=== PATIENT | female | born 1965 | race Caucasian/White ===

== ENCOUNTER 2017-08-12 22:19 | Emergency (ER) | payer OTHER ==
[~2017-08-12] VITALS: Ht 160 cm; Wt 99.8 kg
[~2017-08-12 22:19] MED LIST: ACET500 PO; ALBU90OI INH; ALBU90OI6 INH; ALBU90OI61 INH; ASCO500 PO; ATOR10; AZIT250 PO; AZIT500 PO; BYDUREON P2 MG/0.65 SC; BYETTA; CALCA500CH PO; CEFD300 PO; CEFP200 PO; CEPH500 PO; CIPR500 PO; CLON.1 PO; CONEST.625 PO; CONEST.9; CRUTCH4 USE; CYCL10 PO; Crutch1 EACH MISC; DIPATR PO; DOXY100 PO; DULERA 100 MCG/13 GM INH; DULO30; DULO30 PO; DULO60 PO; Diflucan100 MG PO; ENOX40I SC; ERYT500 PO; ESCI20; ESCI20 PO; ESOM20; ESOM20 PO; ESTR1 PO; ESTR2 PO; Estradiol0.5 MG; FENO145 PO; FERR325 PO; FLUC150A PO; FLUO20 PO; FOLTANX RF CAP1 EACH PO; FURO40 PO; Flonase 0.05% N16 GM; GABA300 PO; GABA800 PO; GLIM4 MT; GLIM4 PO; GUAI120S1 PO; HORMONE PATCH TOP; HYDACE5 PO; HYDMOR2 PO; HYDROCODONE-HOMA5 ML PO; HYDSUL200 PO; Humalog100 UNIT/1 SC; Humulin 70-30 V10 ML SC; IBUP800 PO; INS70/30I; INS70/30PN; INSDET100; INSLI100I SUBQ; INSU7030P SUBQ; INSUASPI SC; INSUASPI SUBQ; INSUL100I SC; INSULANI SUBQ; INSULANPEN SC; INVOKANA100 MG PO; K-Dur10 MEQ PO; LATUDA40 MG PO; LEVFLO500 PO; LEVO750 PO; LEVSOD100; LEVSOD100 PO; LEVSOD175; LEVSOD175 PO; LEVSOD200; LEVSOD200 PO; LIRA0.6P SC; LISHYD1012 PO; LORA1; LORA1 PO; LORA2 PO; LOSA25 PO; Lasix20 MG PO; Levaquin750 MG PO; Levothyroxine200 MCG PO; MAGNESIUM; MAGNESIUM PO; MAGOXI400 PO; MECL25 PO; METANX CAPSULE1 EACH PO; METF500 PO; METF500C; METF850; METF850 PO; METO10 PO; MILN100T PO; MORP15ER PO; MORP30ER PO; NEBI5 PO; NEOPOLHCSU RIGHTEAR; NITR100 PO; NORT25 PO; NORT75 PO; NYST100000 PO; Norco 10-325 T1 EACH PO; Norco 5-325 Ta1 EACH PO; OLME20; OMEP20ER PO; OXYACE5T; OXYACE5T PO; OXYC10TA19 PO; Omeprazole20 M1 PO; PHENA200 PO; POTCHL20ER PO; PRAV20 PO; PRED20 PO; PROC10 PO; PROG100 MT; PROG100 PO; PROM25 PO; Percocet 5-3251 EACH PO; Prednisone20 MG PO; RXHYD5325 PO; RXOXYACE PO; SITA100T2 PO; SULTRIDS PO; TRAM50 PO; TYLENOL PRN; VARE1 PO; VENL75ER; Valium5 MG PO; Ventolin Soln3 ML INH; [UNRECOGNIZED DRUG - CODE]; [UNRECOGNIZED DRUG - OTHER] PO; [UNRECOGNIZED DRUG - OTHER] TOP
[2017-08-13 01:21] LABS: BASOPHILS ABSOLUTE AUTO 0.07 K/mm3 (0.00-0.23); BASOPHILS PERCENT AUTO 1 % (0-2); EOSINOPHILS PERCENT AUTO 2 % (0-6); Hematocrit 41.5 % (33.0-51.0); Hemoglobin 13.3 g/dL (11.5-16.0); Mean Corpuscular HGB 27.1 pg (26.0-34.0); Mean Corpuscular Volume 85 fL (80-100); Mean Platelet Volume 10.1 fL (9.1-12.4); Platelet Count 233 K/mm3 (150-400); RDW Coefficient Variation 15.3 % (11.7-14.2); RDW Standard Deviation 46.8 fL (35.1-46.3); White Blood Cell Count 13.55 K/mm3 (4.00-11.30)
[2017-08-13 01:23] LABS: IMMATURE GRAN ABSOLUTE AUTO 0.08 K/mm3 (0.00-0.10); IMMATURE GRAN PERCENT AUTO 1 % (0-1); LYMPHOCYTES ABSOLUTE AUTO 4.81 K/mm3 (0.84-5.20); LYMPHOCYTES PERCENT AUTO 36 % (21-46); MONOCYTES ABSOLUTE AUTO 0.68 K/mm3 (0.16-1.47); MONOCYTES PERCENT AUTO 5 % (4-13); NEUTROPHILS ABSOLUTE AUTO 7.71 K/mm3 (1.96-9.15); NEUTROPHILS PERCENT AUTO 57 % (41-73)
[2017-08-13 01:37] LABS: Alanine Aminotransfer (ALT/SGP 24 U/L (12-78); Albumin, Blood 3.7 g/dL (3.4-5.0); Albumin/Globulin Ratio 0.9 (0.8-1.8); Alk Phos 155 U/L (50-136); Anion Gap 11 mmol/L (6-16); Aspartate Aminotrans (AST/SGOT 14 U/L (12-37); Bilirubin, Total 0.3 mg/dL (0.1-1.0); Blood Urea Nitrogen 10 mg/dL (8-24); Bun/Creatinine Ratio 17.7 (12.0-20.0); CO2, Blood 22 mmol/L (21-32); Calcium, Blood 8.7 mg/dL (8.5-10.1); Chloride, Blood 101 mmol/L (98-108); Creatinine, Blood 0.57 mg/dL (0.40-1.00); Globulin, Blood 3.9 g/dL (2.2-4.0); Glomerular Filtration Rate >60 (60-); Glucose, Blood 338 mg/dL (70-99); Potassium, Blood 3.7 mmol/L (3.5-5.5); Sodium, Blood 134 mmol/L (136-145); Total Protein, Blood 7.6 g/dL (6.4-8.2); Troponin I <0.015 ng/mL (0.000-0.040)
[2017-08-13] MEDS ORDERED: Prednisone20 MG PO (02:15)
[2018-06-27] MEDS ORDERED: Augmentin 875-1 EACH PO ×2 (05:24→05:36)
== END 2017-08-13 02:43 | disposition home or self-care (01) ==
LOC: ER 22:19
PROVIDERS: Emergency Medicine
DX: J44.1 Chronic obstructive pulmonary disease with (acute) exacerbation (principal); E11.9 Type 2 diabetes mellitus without complications; E03.9 Hypothyroidism, unspecified; F32.9 Major depressive disorder, single episode, unspecified; F41.9 Anxiety disorder, unspecified; F17.200 Nicotine dependence, unspecified, uncomplicated; Z88.0 Allergy status to penicillin; Z88.6 Allergy status to analgesic agent; Z88.8 Allergy status to other drugs, medicaments and biological substances; Z88.5 Allergy status to narcotic agent; Z79.4 Long term (current) use of insulin; Z79.899 Other long term (current) drug therapy; Z79.52 Long term (current) use of systemic steroids; Z90.710 Acquired absence of both cervix and uterus
CPT/HCPCS: 36415; 71046; 80053; 84484; 85025; 93005; 93010; 94640; 96374; 96375; 99284; J2405; J2930; J3010

== ENCOUNTER 2017-08-18 13:49 | Emergency (ER) | payer OTHER ==
[~2017-08-18] VITALS: Ht 160 cm; Wt 99.8 kg
[2018-06-27] MEDS ORDERED: Augmentin 875-1 EACH PO ×2 (05:24→05:36)
== END 2017-08-18 17:00 | disposition left against medical advice (07) ==
LOC: ER 13:49
DX: Z53.21 Procedure and treatment not carried out due to patient leaving prior to being seen by health care provider (principal)
CPT/HCPCS: 99281

== ENCOUNTER 2018-01-10 05:20 | Emergency (ER) | payer OTHER ==
[~2018-01-10] VITALS: Ht 160 cm; Wt 97.5 kg
[~2018-01-10 05:20] MED LIST changes: +SYNTHROID0.2 MG PO
[2018-01-10] MEDS ORDERED: METPRE4DP PO (07:39)
== END 2018-01-10 08:13 | disposition home or self-care (01) ==
LOC: ER 05:20
DX: J02.9 Acute pharyngitis, unspecified (principal); E11.9 Type 2 diabetes mellitus without complications; E03.9 Hypothyroidism, unspecified; F32.9 Major depressive disorder, single episode, unspecified; F41.9 Anxiety disorder, unspecified; Z88.8 Allergy status to other drugs, medicaments and biological substances; Z88.6 Allergy status to analgesic agent; Z88.0 Allergy status to penicillin; Z79.899 Other long term (current) drug therapy; Z79.4 Long term (current) use of insulin
CPT/HCPCS: 81000; 87081; 87430; 96372; 99283; J1100

== ENCOUNTER 2018-03-06 15:26 | Observation (INO) | payer OTHER ==
[~2018-03-06] VITALS: Ht 157.5 cm; Wt 100.7 kg
[~2018-03-06 15:26] MED LIST changes: +METPRE4DP PO; -SYNTHROID0.2 MG PO
[2018-03-06 16:06] LABS: BASOPHILS ABSOLUTE AUTO 0.03 K/mm3 (0.00-0.23); BASOPHILS PERCENT AUTO 0 % (0-2); EOSINOPHILS ABSOLUTE AUTO 0.22 K/mm3 (0.00-0.68); EOSINOPHILS PERCENT AUTO 2 % (0-6); Hematocrit 39.7 % (33.0-51.0); Hemoglobin 12.7 g/dL (11.5-16.0); IMMATURE GRAN ABSOLUTE AUTO 0.07 K/mm3 (0.00-0.10); IMMATURE GRAN PERCENT AUTO 1 % (0-1); LYMPHOCYTES ABSOLUTE AUTO 3.38 K/mm3 (0.84-5.20); LYMPHOCYTES PERCENT AUTO 27 % (21-46); MONOCYTES ABSOLUTE AUTO 0.51 K/mm3 (0.16-1.47); MONOCYTES PERCENT AUTO 4 % (4-13); Mean Corpuscular HGB 26.1 pg (26.0-34.0); Mean Corpuscular Volume 82 fL (80-100); Mean Platelet Volume 11.1 fL (9.1-12.4); NEUTROPHILS PERCENT AUTO 67 % (41-73); Platelet Count 237 K/mm3 (150-400); RDW Coefficient Variation 14.5 % (11.7-14.2); RDW Standard Deviation 42.3 fL (35.1-46.3); Red Blood Cell Count 4.87 M/mm3 (3.80-5.20); White Blood Cell Count 12.61 K/mm3 (4.00-11.30)
[2018-03-06 16:24] LABS: Alanine Aminotransfer (ALT/SGP 30 U/L (12-78); Albumin, Blood 3.6 g/dL (3.4-5.0); Albumin/Globulin Ratio 0.9 (0.8-1.8); Alk Phos 168 U/L (50-136); Anion Gap 11 mmol/L (6-16); Aspartate Aminotrans (AST/SGOT 15 U/L (12-37); Bilirubin, Total 0.6 mg/dL (0.1-1.0); Blood Urea Nitrogen 7 mg/dL (8-24); Bun/Creatinine Ratio 11.6 (12.0-20.0); CO2, Blood 28 mmol/L (21-32); Calcium, Blood 9.2 mg/dL (8.5-10.1); Chloride, Blood 91 mmol/L (98-108); Creatinine, Blood 0.61 mg/dL (0.40-1.00); Globulin, Blood 3.9 g/dL (2.2-4.0); Glomerular Filtration Rate >60 (60-); Glucose, Blood 354 mg/dL (70-99); Potassium, Blood 3.4 mmol/L (3.5-5.5); Sodium, Blood 130 mmol/L (136-145); Total Protein, Blood 7.5 g/dL (6.4-8.2); Troponin I <0.015 ng/mL (0.000-0.040)
[2018-03-06 16:29] LABS: Thyroid Stimulating Hormone <0.005 uIU/mL (0.360-4.800)
[2018-03-06] MEDS ORDERED: Humulin N100 UNIT/1 SC (16:33)
[2018-03-06] MEDS ORDERED: BASAGLAR K100 UNIT/1 SC (16:35)
[2018-03-06 17:02] LABS: Free Thyroxine 3.2 ng/dL (0.70-1.60)
[2018-03-06 17:06] LABS: Triiodothyronine, Free 5.69 pg/mL (2.18-3.98)
[2018-03-07 06:16] LABS: Hematocrit 33.4 % (33.0-51.0); Hemoglobin 10.9 g/dL (11.5-16.0); Mean Corpuscular HGB 26.8 pg (26.0-34.0); Mean Corpuscular HGB Conc 32.6 g/dL (31.5-36.5); Mean Corpuscular Volume 82 fL (80-100); Mean Platelet Volume 10.3 fL (9.1-12.4); Platelet Count 182 K/mm3 (150-400); RDW Coefficient Variation 14.6 % (11.7-14.2); RDW Standard Deviation 43.4 fL (35.1-46.3); Red Blood Cell Count 4.06 M/mm3 (3.80-5.20); White Blood Cell Count 9.13 K/mm3 (4.00-11.30)
[2018-03-07 06:31] LABS: LDL/HDL RATIO 0.8; Troponin I <0.015 ng/mL (0.000-0.040); Very Low Density Lipoprot Chol 45 mg/dL (6-32)
[2018-03-07 06:32] LABS: Anion Gap 7 mmol/L (6-16); Blood Urea Nitrogen 7 mg/dL (8-24); Bun/Creatinine Ratio 10.9 (12.0-20.0); CHOL/HDL RATIO 3.4; CO2, Blood 29 mmol/L (21-32); Calcium, Blood 8.1 mg/dL (8.5-10.1); Chloride, Blood 101 mmol/L (98-108); Cholesterol 96 mg/dL (50-200); Creatinine, Blood 0.65 mg/dL (0.40-1.00); Glomerular Filtration Rate >60 (60-); Glucose, Blood 250 mg/dL (70-99); HDL Cholesterol 28 mg/dL (>39); Low Density Lipoprotein Chol 23 mg/dL (0-110); Potassium, Blood 4.3 mmol/L (3.5-5.5); Sodium, Blood 137 mmol/L (136-145); Triglycerides 225 mg/dL (30-160)
[2018-03-07 09:10] LABS: Source, Urine Clean Catch
[2018-03-07 09:25] LABS: Bilirubin, Urine Neg (Neg); Blood, Urine Neg (Neg); Glucose Qualitative, Urine 3+ (Neg); Ketones, Urine Neg (Neg); Leukocyte Esterase, Urine Neg (Neg); Nitrite, Urine Neg (Neg); Protein, Urine Neg (Neg); Specific Gravity, Urine 1.015 (1.003-1.022); Urobilinogen, Urine NORM (Normal)
[2018-03-07 09:26] LABS: Appearance, Urine Clear (Clear); Color, Urine Yellow (P-Yellow)
[2018-03-08] MEDS ORDERED: METO25ER PO (19:32)
== END 2018-03-08 19:45 | disposition home or self-care (01) ==
LOC: ER 15:26 → PCU 15:27
PROVIDERS: Nurse Practitioner Acute Care; Physician Assistant
DX: R07.9 Chest pain, unspecified (principal); R07.89 Other chest pain; E03.2 Hypothyroidism due to medicaments and other exogenous substances; T38.1X5A Adverse effect of thyroid hormones and substitutes, initial encounter; J44.9 Chronic obstructive pulmonary disease, unspecified; E11.9 Type 2 diabetes mellitus without complications; G47.33 Obstructive sleep apnea (adult) (pediatric); Z99.89 Dependence on other enabling machines and devices; M79.7 Fibromyalgia; E66.01 Morbid (severe) obesity due to excess calories; F32.9 Major depressive disorder, single episode, unspecified; I10 Essential (primary) hypertension; E87.1 Hypo-osmolality and hyponatremia; E87.6 Hypokalemia; Z79.899 Other long term (current) drug therapy
CPT/HCPCS: 36415; 71046; 71260; 78452; 80048; 80053; 80061; 81003; 82947; 84439; 84443; 84481; 84484; 85025; 85027; 85379; 93005; 93010; 93017; 94640; 94760; 96361; 96374; 96375; 96376; 99285-25; A9500; G0378; J0706; J2785; J3010; J7030; Q9967

== ENCOUNTER → 2018-08-23 | Outpatient (CLI) | payer OTHER ==
[~2018-08-23] MED LIST changes: +Augmentin 875-1 EACH PO; +BASAGLAR K100 UNIT/1 SC; +Humulin N100 UNIT/1 SC; +METO25ER PO
[2018-08-23 17:07] LABS: BASOPHILS ABSOLUTE AUTO 0.07 K/mm3 (0.00-0.23); BASOPHILS PERCENT AUTO 1 % (0-2); EOSINOPHILS ABSOLUTE AUTO 0.76 K/mm3 (0.00-0.68); EOSINOPHILS PERCENT AUTO 6 % (0-6); Hematocrit 40.6 % (33.0-51.0); Hemoglobin 13.5 g/dL (11.5-16.0); IMMATURE GRAN ABSOLUTE AUTO 0.05 K/mm3 (0.00-0.10); IMMATURE GRAN PERCENT AUTO 0 % (0-1); LYMPHOCYTES ABSOLUTE AUTO 4.07 K/mm3 (0.84-5.20); LYMPHOCYTES PERCENT AUTO 31 % (21-46); MONOCYTES ABSOLUTE AUTO 0.62 K/mm3 (0.16-1.47); MONOCYTES PERCENT AUTO 5 % (4-13); Mean Corpuscular HGB 26.9 pg (26.0-34.0); Mean Corpuscular HGB Conc 33.3 g/dL (31.5-36.5); Mean Corpuscular Volume 81 fL (80-100); Mean Platelet Volume 10.5 fL (9.1-12.4); NEUTROPHILS ABSOLUTE AUTO 7.69 K/mm3 (1.96-9.15); NEUTROPHILS PERCENT AUTO 58 % (41-73); Platelet Count 250 K/mm3 (150-400); RDW Coefficient Variation 15.3 % (11.7-14.2); RDW Standard Deviation 44.7 fL (35.1-46.3); Red Blood Cell Count 5.02 M/mm3 (3.80-5.20); White Blood Cell Count 13.26 K/mm3 (4.00-11.30)
[2018-08-23 17:19] LABS: Alanine Aminotransfer (ALT/SGP 24 U/L (12-78); Albumin/Globulin Ratio 1.1 (0.8-1.8); Alk Phos 140 U/L (40-126); Anion Gap 9 mmol/L (6-16); Aspartate Aminotrans (AST/SGOT 14 U/L (12-37); Bilirubin, Total 0.3 mg/dL (0.1-1.0); Blood Urea Nitrogen 7 mg/dL (8-24); CO2, Blood 27 mmol/L (21-32); Chloride, Blood 96 mmol/L (98-108); Creatinine, Blood 0.78 mg/dL (0.40-1.00); Globulin, Blood 3.5 g/dL (2.2-4.0); Glomerular Filtration Rate >60 (60-); Glucose, Blood 286 mg/dL (70-99); Potassium, Blood 4.1 mmol/L (3.5-5.5); Sodium, Blood 132 mmol/L (136-145); Total Protein, Blood 7.5 g/dL (6.4-8.2)
== END | disposition home or self-care (01) ==
LOC: LAB EV 17:04 → LAB SHORT 17:04
PROVIDERS: Physician Assistant
DX: R10.9 Unspecified abdominal pain (principal)
CPT/HCPCS: 80053; 83690; 85025

== ENCOUNTER → 2018-08-24 | Outpatient (CLI) | payer OTHER ==
[2018-08-24 14:51] LABS: BASOPHILS ABSOLUTE AUTO 0.05 K/mm3 (0.00-0.23); BASOPHILS PERCENT AUTO 0 % (0-2); EOSINOPHILS ABSOLUTE AUTO 0.63 K/mm3 (0.00-0.68); EOSINOPHILS PERCENT AUTO 5 % (0-6); Hematocrit 40.1 % (33.0-51.0); Hemoglobin 13.5 g/dL (11.5-16.0); IMMATURE GRAN ABSOLUTE AUTO 0.04 K/mm3 (0.00-0.10); IMMATURE GRAN PERCENT AUTO 0 % (0-1); LYMPHOCYTES ABSOLUTE AUTO 3.67 K/mm3 (0.84-5.20); LYMPHOCYTES PERCENT AUTO 30 % (21-46); MONOCYTES ABSOLUTE AUTO 0.57 K/mm3 (0.16-1.47); MONOCYTES PERCENT AUTO 5 % (4-13); Mean Corpuscular HGB 27.2 pg (26.0-34.0); Mean Corpuscular HGB Conc 33.7 g/dL (31.5-36.5); Mean Corpuscular Volume 81 fL (80-100); Mean Platelet Volume 10.8 fL (9.1-12.4); NEUTROPHILS ABSOLUTE AUTO 7.35 K/mm3 (1.96-9.15); NEUTROPHILS PERCENT AUTO 60 % (41-73); Platelet Count 254 K/mm3 (150-400); RDW Coefficient Variation 15.4 % (11.7-14.2); RDW Standard Deviation 44.4 fL (35.1-46.3); Red Blood Cell Count 4.97 M/mm3 (3.80-5.20); White Blood Cell Count 12.31 K/mm3 (4.00-11.30)
== END | disposition home or self-care (01) ==
LOC: LAB EV 14:44 → LAB SHORT 14:44
PROVIDERS: Physician Assistant
DX: R10.9 Unspecified abdominal pain (principal)
CPT/HCPCS: 85025

== ENCOUNTER 2019-06-03 20:23 | Emergency (ER) | payer OTHER ==
[~2019-06-03] VITALS: Ht 162.6 cm; Wt 81.7 kg
[2019-06-03] MEDS ORDERED: BASAGLAR SC (21:08)
== END 2019-06-03 21:13 | disposition home or self-care (01) ==
LOC: ER 20:23
DX: S60.222A Contusion of left hand, initial encounter (principal); E03.9 Hypothyroidism, unspecified; E11.9 Type 2 diabetes mellitus without complications; F32.9 Major depressive disorder, single episode, unspecified; F41.9 Anxiety disorder, unspecified; F17.210 Nicotine dependence, cigarettes, uncomplicated; Z88.8 Allergy status to other drugs, medicaments and biological substances; Z88.6 Allergy status to analgesic agent; Z88.0 Allergy status to penicillin; Z88.5 Allergy status to narcotic agent; Z88.2 Allergy status to sulfonamides; Z88.1 Allergy status to other antibiotic agents; Z79.899 Other long term (current) drug therapy; Z79.84 Long term (current) use of oral hypoglycemic drugs; W01.10XA Fall on same level from slipping, tripping and stumbling with subsequent striking against unspecified object, initial encounter
CPT/HCPCS: 73130; 99283-25

== ENCOUNTER 2019-09-30 13:00 | Emergency (ER) | payer OTHER ==
[~2019-09-30] VITALS: Ht 162.6 cm; Wt 86.2 kg
[~2019-09-30 13:00] MED LIST changes: +BASAGLAR SC
[2019-09-30] MEDS ORDERED: METF500 PO (13:29)
[2019-09-30] MEDS ORDERED: Cymbalta20 MG (13:29)
[2019-09-30] MEDS ORDERED: TOPROL XL25 MG (13:29)
[2019-09-30] MEDS ORDERED: BASAGLAR K100 UNIT/2 (13:30)
[2019-09-30] MEDS ORDERED: GLIP2.5ER (13:30)
[2019-09-30] MEDS ORDERED: GABA800 PO (13:30)
[2019-09-30] MEDS ORDERED: OMEP20ER (13:30)
[2019-09-30] MEDS ORDERED: CYCL10 (13:30)
[2019-09-30] MEDS ORDERED: OXYC10TA19 (13:30)
== END 2019-09-30 15:09 | disposition home or self-care (01) ==
LOC: ER 13:00
DX: S93.402A Sprain of unspecified ligament of left ankle, initial encounter (principal); E11.9 Type 2 diabetes mellitus without complications; E03.9 Hypothyroidism, unspecified; F41.9 Anxiety disorder, unspecified; F32.9 Major depressive disorder, single episode, unspecified; G47.30 Sleep apnea, unspecified; M79.7 Fibromyalgia; M32.9 Systemic lupus erythematosus, unspecified; Z79.4 Long term (current) use of insulin; Z79.899 Other long term (current) drug therapy; F17.210 Nicotine dependence, cigarettes, uncomplicated; Z88.6 Allergy status to analgesic agent; Z88.8 Allergy status to other drugs, medicaments and biological substances; Z88.2 Allergy status to sulfonamides; W01.0XXA Fall on same level from slipping, tripping and stumbling without subsequent striking against object, initial encounter
CPT/HCPCS: 73030; 73080; 73610; 73630; 96372; 99283-25; A9270-GY; J1885

== ENCOUNTER 2019-11-19 17:11 | Emergency (ER) | payer OTHER ==
[~2019-11-19] VITALS: Ht 160 cm; Wt 86.2 kg
[~2019-11-19 17:11] MED LIST changes: +BASAGLAR K100 UNIT/2; +CYCL10; +Cymbalta20 MG; +GLIP2.5ER; +OMEP20ER; +OXYC10TA19; +TOPROL XL25 MG
[2019-11-19] MEDS ORDERED: ANTIDEPRESSANT (17:24)
[2019-11-20] MEDS ORDERED: Roxicodone5 MG PO (18:32)
== END 2019-11-19 18:07 | disposition home or self-care (01) ==
LOC: ER 17:11
DX: M79.672 Pain in left foot (principal); E11.9 Type 2 diabetes mellitus without complications; N19 Unspecified kidney failure; E03.9 Hypothyroidism, unspecified; F32.9 Major depressive disorder, single episode, unspecified; F41.9 Anxiety disorder, unspecified; G47.30 Sleep apnea, unspecified; F17.210 Nicotine dependence, cigarettes, uncomplicated
CPT/HCPCS: 73630; 96372; 99283-25; J1170

== ENCOUNTER 2019-11-20 17:46 | Emergency (ER) | payer OTHER ==
[~2019-11-20] VITALS: Ht 160 cm; Wt 86.2 kg
[~2019-11-20 17:46] MED LIST changes: +ANTIDEPRESSANT
[2019-11-20] MEDS ORDERED: Roxicodone5 MG PO (18:32)
== END 2019-11-20 18:45 | disposition home or self-care (01) ==
LOC: ER 17:46
DX: M87.9 Osteonecrosis, unspecified (principal); E11.9 Type 2 diabetes mellitus without complications; E03.9 Hypothyroidism, unspecified; F32.9 Major depressive disorder, single episode, unspecified; F41.9 Anxiety disorder, unspecified; G47.30 Sleep apnea, unspecified; F17.210 Nicotine dependence, cigarettes, uncomplicated; Z79.899 Other long term (current) drug therapy; Z79.4 Long term (current) use of insulin
CPT/HCPCS: 99283

== ENCOUNTER → 2020-03-14 | Outpatient (CLI) | payer OTHER ==
[~2020-03-14] MED LIST changes: +Roxicodone5 MG PO
== END | disposition home or self-care (01) ==
LOC: LAB SHORT 18:45 → LAB 18:45
DX: L02.91 Cutaneous abscess, unspecified (principal)
CPT/HCPCS: 87070; 87075; 87076; 87147; 87205

== ENCOUNTER 2020-08-11 17:44 | Emergency (ER) | payer MEDICARE, OTHER ==
[~2020-08-11] VITALS: Ht 162.6 cm; Wt 90.7 kg
== END 2020-08-11 19:00 | disposition home or self-care (01) ==
LOC: ER 17:44
DX: S93.401A Sprain of unspecified ligament of right ankle, initial encounter (principal); E11.9 Type 2 diabetes mellitus without complications; E03.9 Hypothyroidism, unspecified; F17.210 Nicotine dependence, cigarettes, uncomplicated; Z88.6 Allergy status to analgesic agent; Z88.0 Allergy status to penicillin; Z88.8 Allergy status to other drugs, medicaments and biological substances; Z88.2 Allergy status to sulfonamides; Z88.5 Allergy status to narcotic agent; Z88.1 Allergy status to other antibiotic agents; Z79.84 Long term (current) use of oral hypoglycemic drugs
CPT/HCPCS: 73610; 73630; 99283-25

== ENCOUNTER → 2020-10-01 | Outpatient (CLI) | payer MEDICARE, OTHER | END | disposition home or self-care (01) | LOC: LAB SHORT 07:29 → LAB 07:29 | DX: M87.076 Idiopathic aseptic necrosis of unspecified foot (principal); M77.8 Other enthesopathies, not elsewhere classified; M77.42 Metatarsalgia, left foot; M79.672 Pain in left foot; E11.42 Type 2 diabetes mellitus with diabetic polyneuropathy | CPT/HCPCS: 88305; 88311 ==

== ENCOUNTER → 2021-03-15 | Outpatient (CLI) | payer MEDICARE, OTHER | END | disposition home or self-care (01) | LOC: LAB 19:31 → LAB SHORT 19:31 | DX: Z20.822 Contact with and (suspected) exposure to COVID-19 (principal) | CPT/HCPCS: U0003 ==

== ENCOUNTER 2022-01-30 18:50 | Inpatient (IN) | payer MEDICARE, OTHER ==
[~2022-01-30] VITALS: Ht 162.6 cm; Wt 68.0 kg
[~2022-01-30 18:50] MED LIST changes: -Cymbalta20 MG; +METO50 PO; +Nexium40 MG PO; -OMEP20ER; -OXYC10TA19; -TOPROL XL25 MG
[2022-01-30 21:23] LABS: Source, Urine Voided
[2022-01-30 21:29] LABS: Bilirubin, Urine Neg (Neg); Blood, Urine Neg (Neg); Color, Urine Yellow (P-Yellow); Glucose Qualitative, Urine 4+ (Neg); Ketones, Urine 3+ (Neg); Leukocyte Esterase, Urine Neg (Neg); Nitrite, Urine Neg (Neg); Protein, Urine Neg (Neg); Specific Gravity, Urine 1.015 (1.003-1.022); Urobilinogen, Urine NORM (Normal)
[2022-01-30 21:40] LABS: Appearance, Urine Clear (Clear)
[2022-01-30 21:58] LABS: BASOPHILS ABSOLUTE AUTO 0.07 K/mm3 (0.00-0.23); BASOPHILS PERCENT AUTO 0 % (0-2); EOSINOPHILS ABSOLUTE AUTO 0.15 K/mm3 (0.00-0.68); EOSINOPHILS PERCENT AUTO 1 % (0-6); Hematocrit 49.7 % (33.0-51.0); Hemoglobin 17.2 g/dL (11.5-16.0); IMMATURE GRAN ABSOLUTE AUTO 0.11 K/mm3 (0.00-0.10); IMMATURE GRAN PERCENT AUTO 1 % (0-1); LYMPHOCYTES ABSOLUTE AUTO 5.11 K/mm3 (0.84-5.20); LYMPHOCYTES PERCENT AUTO 29 % (21-46); MONOCYTES ABSOLUTE AUTO 1.05 K/mm3 (0.16-1.47); MONOCYTES PERCENT AUTO 6 % (4-13); Mean Corpuscular HGB 29.5 pg (26.0-34.0); Mean Corpuscular HGB Conc 34.6 g/dL (31.5-36.5); Mean Corpuscular Volume 85 fL (80-100); NEUTROPHILS ABSOLUTE AUTO 11.35 K/mm3 (1.96-9.15); NEUTROPHILS PERCENT AUTO 64 % (41-73); Platelet Count 249 K/mm3 (150-400); RDW Coefficient Variation 12.6 % (11.7-14.2); RDW Standard Deviation 37.8 fL (35.1-46.3); Red Blood Cell Count 5.83 M/mm3 (3.80-5.20); White Blood Cell Count 17.84 K/mm3 (4.00-11.30)
[2022-01-30 22:17] LABS: Albumin, Blood 3.8 g/dL (3.4-5.0); Albumin/Globulin Ratio 1.1 (0.8-1.8); Bilirubin, Total 0.6 mg/dL (0.1-1.0); Bun/Creatinine Ratio 44.9 (12.0-20.0); Calcium, Blood 9.5 mg/dL (8.5-10.1); Creatinine, Blood 0.56 mg/dL (0.40-1.00); Globulin, Blood 3.4 g/dL (2.2-4.0); Potassium, Blood 3.7 mmol/L (3.5-5.5); Total Protein, Blood 7.2 g/dL (6.4-8.2)
[2022-01-31] MEDS ORDERED: HYDSUL200 PO (03:26)
[2022-01-31] MEDS ORDERED: EUTHYROX50 MCG PO (03:27)
[2022-01-31] MEDS ORDERED: EUTHYROX175 MCG PO (03:31)
[2022-01-31] MEDS ORDERED: ALBU90OI INH (03:32)
[2022-01-31] MEDS ORDERED: DULERA 100 MCG/13 GM INH (03:33)
[2022-01-31] MEDS ORDERED: MODA200 PO (03:33)
[2022-01-31] MEDS ORDERED: MORP15ER PO (03:35)
[2022-01-31] MEDS ORDERED: JARDIANCE25 MG PO (03:37)
[2022-01-31] MEDS ORDERED: LAMOTRIGINE OD200 MG PO (03:37)
[2022-01-31] MEDS ORDERED: VRAYLAR4.5 MG PO (03:37)
[2022-01-31] MEDS ORDERED: CEFUROXIME AXETIL PO (03:40)
[2022-01-31] MEDS ORDERED: ESTRADIOL TD (03:41)
[2022-01-31] MEDS ORDERED: ATOR40TA PO (03:44)
--- NOTE | 2022-01-31 04:41 | NUR ---
SHIFT SUMMARY 56 YR F ADMITTED ON 01/30/22 FOR SMALL BOWEL OBSTRUCTION. PT CAME TO THIS UNIT AT APPROX 0145. SHE WAS MADE COMFORTABLE AND ASSESSMENT WAS DONE. FLUIDS STARTED. SHE C/O PAIN AT APPROX 0440 AND WAS GIVEN PAIN MEDS PER EMAR. SHE HAS SLEPT FOR MOST OF THE TIME SHE HAS BEEN ON THIS UNIT.
[2022-01-31 05:34] LABS: BASOPHILS ABSOLUTE AUTO 0.08 K/mm3 (0.00-0.23); BASOPHILS PERCENT AUTO 0 % (0-2); EOSINOPHILS ABSOLUTE AUTO 0.16 K/mm3 (0.00-0.68); EOSINOPHILS PERCENT AUTO 1 % (0-6); Hematocrit 52.4 % (33.0-51.0); IMMATURE GRAN ABSOLUTE AUTO 0.13 K/mm3 (0.00-0.10); IMMATURE GRAN PERCENT AUTO 1 % (0-1); LYMPHOCYTES ABSOLUTE AUTO 3.22 K/mm3 (0.84-5.20); LYMPHOCYTES PERCENT AUTO 17 % (21-46); MONOCYTES ABSOLUTE AUTO 1.09 K/mm3 (0.16-1.47); MONOCYTES PERCENT AUTO 6 % (4-13); Mean Corpuscular HGB 29.3 pg (26.0-34.0); Mean Corpuscular HGB Conc 34.4 g/dL (31.5-36.5); Mean Corpuscular Volume 85 fL (80-100); Mean Platelet Volume 9.9 fL (9.1-12.4); NEUTROPHILS ABSOLUTE AUTO 13.78 K/mm3 (1.96-9.15); NEUTROPHILS PERCENT AUTO 75 % (41-73); Platelet Count 243 K/mm3 (150-400); RDW Coefficient Variation 12.5 % (11.7-14.2); RDW Standard Deviation 38.5 fL (35.1-46.3); Red Blood Cell Count 6.14 M/mm3 (3.80-5.20); White Blood Cell Count 18.46 K/mm3 (4.00-11.30)
[2022-01-31 05:56] LABS: Albumin, Blood 3.5 g/dL (3.4-5.0); Albumin/Globulin Ratio 1.1 (0.8-1.8); Bilirubin, Total 0.7 mg/dL (0.1-1.0); Bun/Creatinine Ratio 34.4 (12.0-20.0); Calcium, Blood 9.3 mg/dL (8.5-10.1); Creatinine, Blood 0.52 mg/dL (0.40-1.00); Globulin, Blood 3.3 g/dL (2.2-4.0); Potassium, Blood 3.6 mmol/L (3.5-5.5); Total Protein, Blood 6.8 g/dL (6.4-8.2)
--- NOTE | 2022-01-31 16:52 | NUR ---
DAY SHIFT SUMMARY 56 YR OLD FEMALE PT WITH SBO HERE FOR OBSERVATION, NPO. A/O/INDEPENDENT IN ROOM WITH FWW. PT ON RA WITH MEDS WHOLE. PAIN MEDICATION FOR PAIN IN ABDOMIN AND BACK. CALL LIGHT WITHIN REACH AND ABLE TO CALL APPROPRIATE. FLUIDS RUNNING THROUGHOUT SHIFT. NO ACUTE CHANGES THIS SHIFT.
--- NOTE | 2022-02-01 07:31 | NUR ---
PT SBP 100 NOTIFIED WITH PARAMETERS FOR SCHEDULED METOPROLOL. PT BG ALSO 80 AND PT REPORTING THAT THIS IS LOW FOR HER AND CONCERNED. DR. SEARS WITH ORDERS PER SEP. PER DR. SEARS PT CAN HAVE VERY SMALL AMOUNTS OF ICE. MEDICATED FOR PAIN PER SEP. BOWEL SOUNDS PRESENT AND PT REPORTED SHE PASSED SOME GAS.
[2022-02-01 08:58] LABS: Source, Urine Clean Catch
[2022-02-01 09:00] LABS: Appearance, Urine Clear (Clear); Bilirubin, Urine Neg (Neg); Blood, Urine Neg (Neg); Color, Urine Yellow (P-Yellow); Glucose Qualitative, Urine 4+ (Neg); Ketones, Urine 4+ (Neg); Leukocyte Esterase, Urine Neg (Neg); Nitrite, Urine Neg (Neg); Protein, Urine Neg (Neg); Specific Gravity, Urine 1.015 (1.003-1.022); Urobilinogen, Urine NORM (Normal)
--- NOTE | 2022-02-01 09:53 | NUR ---
Dr. Schaffer in to see pt, she will be going to surgery, gave beta david only this am, medicated with fentanyl for pain, did some post op teaching about what to expect with moving and I.S. c&db, she verbalized understanding. day surg will be here in about 10mins to take her, states pain is about a 5 after 50mics fentanyl, call light in reach.
--- NOTE | 2022-02-01 10:14 | NUR ---
pt left for surg via bed.
--- NOTE | 2022-02-01 16:29 | NUR ---
SHIFT SUMMARY PT A&OX4, VSS/RA, GABRIELE PO, VOIDING, AMB SBA TO BRP, DENIES PAIN/NEED FOR ADDITIONAL PAIN MED. S/P FEDERICO, 3 LAP SITES WITH STERIS DRY/INTACT. PLAN FOR DC TOMORROW. FAMILY AT BEDSIDE. WILL REPORT TO ONCOMING NOC RN.
[2022-02-02 04:46] LABS: BASOPHILS ABSOLUTE AUTO 0.03 K/mm3 (0.00-0.23); BASOPHILS PERCENT AUTO 0 % (0-2); EOSINOPHILS ABSOLUTE AUTO 0.12 K/mm3 (0.00-0.68); EOSINOPHILS PERCENT AUTO 1 % (0-6); Hematocrit 41.5 % (33.0-51.0); Hemoglobin 14.4 g/dL (11.5-16.0); IMMATURE GRAN ABSOLUTE AUTO 0.08 K/mm3 (0.00-0.10); IMMATURE GRAN PERCENT AUTO 1 % (0-1); LYMPHOCYTES ABSOLUTE AUTO 2.75 K/mm3 (0.84-5.20); LYMPHOCYTES PERCENT AUTO 19 % (21-46); MONOCYTES PERCENT AUTO 6 % (4-13); Mean Corpuscular HGB 29.7 pg (26.0-34.0); Mean Corpuscular HGB Conc 34.7 g/dL (31.5-36.5); Mean Corpuscular Volume 86 fL (80-100); Mean Platelet Volume 9.9 fL (9.1-12.4); NEUTROPHILS ABSOLUTE AUTO 10.81 K/mm3 (1.96-9.15); NEUTROPHILS PERCENT AUTO 74 % (41-73); Platelet Count 188 K/mm3 (150-400); RDW Coefficient Variation 12.5 % (11.7-14.2); RDW Standard Deviation 38.8 fL (35.1-46.3); Red Blood Cell Count 4.85 M/mm3 (3.80-5.20); White Blood Cell Count 14.69 K/mm3 (4.00-11.30)
[2022-02-02 05:17] LABS: Albumin, Blood 3.3 g/dL (3.4-5.0); Albumin/Globulin Ratio 1.2 (0.8-1.8); Bilirubin, Total 0.5 mg/dL (0.1-1.0); Bun/Creatinine Ratio 27.2 (12.0-20.0); Creatinine, Blood 0.55 mg/dL (0.40-1.00); Globulin, Blood 2.8 g/dL (2.2-4.0); Potassium, Blood 3.6 mmol/L (3.5-5.5); Total Protein, Blood 6.1 g/dL (6.4-8.2)
[2022-02-02] MEDS ORDERED: SIME80CH PO (10:31)
--- NOTE | 2022-02-02 11:30 | NUR ---
SHIFT SUMMARY PT A&OX4, VSS/RA, GABRIELE PO, VOIDING WELL, SHOWERED TODAY, AMB INDEPENDENTLY IN AND OUTSIDE OF HOSPITAL CONSTANTLY WHILE AWAKE, PAIN MANAGED WELL. WALKED OFF FLOOR WITH SISTER, WITH ALL PERSONAL POSSESSIONS INCLUDING DC PACKET. DC INS PROVIDED. PT REP UNDERSTANDING THOSE INSTRUCTIONS.
== END 2022-02-02 11:38 | disposition home or self-care (01) | DRG 336 ==
LOC: ER 18:50 → EOR 19:33 → ER 19:33 → MEDS 01-31 00:21 → SURS 01-31 00:21 → MEDS 01-31 01:46 → SURS 02-01 13:35
PROVIDERS: Internal Medicine; Student in an Organized Health Care Education/Training Program; Surgery; ADMIT Internal Medicine
PROC: 0DNU4ZZ Release Omentum, Percutaneous Endoscopic Approach (ICD-10-PCS; principal; 2022-02-01 12:15)
DX: K56.50 Intestinal adhesions [bands], unspecified as to partial versus complete obstruction (principal); R18.8 Other ascites; M32.9 Systemic lupus erythematosus, unspecified; M79.7 Fibromyalgia; E11.9 Type 2 diabetes mellitus without complications; I10 Essential (primary) hypertension; E03.9 Hypothyroidism, unspecified; G47.30 Sleep apnea, unspecified; F32.A Depression, unspecified; F17.210 Nicotine dependence, cigarettes, uncomplicated; K21.9 Gastro-esophageal reflux disease without esophagitis; J44.9 Chronic obstructive pulmonary disease, unspecified; K76.0 Fatty (change of) liver, not elsewhere classified; F41.9 Anxiety disorder, unspecified; Z98.51 Tubal ligation status; Z90.710 Acquired absence of both cervix and uterus; Z90.721 Acquired absence of ovaries, unilateral; Z88.0 Allergy status to penicillin; Z88.1 Allergy status to other antibiotic agents; Z88.2 Allergy status to sulfonamides; Z88.6 Allergy status to analgesic agent; Z88.8 Allergy status to other drugs, medicaments and biological substances; Z79.4 Long term (current) use of insulin; Z79.891 Long term (current) use of opiate analgesic; Z79.899 Other long term (current) drug therapy
CPT/HCPCS: 36415; 74177; 80053; 81003; 82947; 83690; 85025; 93005; 93010; 94760; 99282-25; 99285-25; A9270; J0330; J0690; J1100; J1650; J1885; J2405; J2704; J3010; J7030; J7042; J7120; Q9967